=== PATIENT | female | born 1950 | race Caucasian/White ===

== ENCOUNTER 2016-07-08 17:50 | Emergency (ER) | payer MEDICARE, OTHER ==
[~2016-07-08 17:50] MED LIST: Nitroglycerin 0.4 MG TAB 1 EACH ONE; Sodium Chloride 0.9% 1,000 ML BAG ONE
[2016-07-08] MEDS ORDERED: Nitroglycerin 0.4 MG TAB 1 EACH ONE (18:15)
[2016-07-08] MEDS ORDERED: Aspirin 325 MG TAB ONE (18:15)
[2016-07-08 18:33] LABS: #Basophils 0.1 thou/uL (0.0-0.2); #Eosinphils 0.1 thou/uL (0.0-0.7); #Lymphocytes 1.6 thou/uL (1.20-3.40); #Monocytes 0.4 thou/uL (0.11-0.59); #Neutrophils 3.5 thou/uL (1.40-6.50); %Eosinophils 2.6 % (0.0-10.0); %Lymphocytes 27.9 % (21.0-51.0); %Monocytes 7.2 % (0.0-10.0); %Neutrophils 61.3 % (42.0-75.0); Hemoglobin 12.5 g/dL (12.0-16.0); Mean Corpuscular HGB CONC 34.3 g/dL (32.0-36.0); Mean Corpuscular Hemoglobin 28.8 pg (27.0-31.0); Mean Corpuscular Volume 83.9 fl (81.0-99.0); Mean Platelet Volume 8.3 fL (7.4-10.4); Platelet Count 159 thou/uL (130-400); RBC Distribution Width 12.4 % (11.5-14.5); Red Blood Cell (RBC) Count 4.35 mill/uL (4.20-5.40); White Blood Cell (WBC) Count 5.7 thou/uL (4.8-10.8)
[2016-07-08 18:40] LABS: ALT (SGPT) 23 U/L (0-55); AST (SGOT) 24 U/L (5-34); Alkaline Phosphatase 84 U/L (40-150); Anion Gap 14 mmol/L (10-20); BUN (Urea Nitrogen) 11 mg/dL (9.8-20.1); Bilirubin, Total 0.3 mg/dL (0.2-1.2); Calc. Creatinine Clearance 0 mL/min (70-130); Carbon Dioxide 28 mmol/L (23-31); Chloride 104 mmol/L (98-107); Estimated GFR-MDRD 70; Glucose 134 mg/dL (80-115); Potassium 3.2 mmol/L (3.5-5.1); Sodium 143 mmol/L (136-145)
[2016-07-08 18:42] LABS: CKMB 2.1 ng/mL (0-6.6); Troponin I Less than 0.010 ng/mL (< 0.028)
[2016-07-08] MEDS ORDERED: Acetaminophen 325 MG TAB ONE (18:43)
[2016-07-08] MEDS ORDERED: Potassium Chloride 20 MEQ TAB ONE (19:05)
[2016-07-08] MEDS ORDERED: Ondansetron HCl/PF 4 MG/2 ML Vial ONE (19:43)
--- NOTE | 2016-07-08 19:48 | RAD ---
EXAM: ONE VIEW CHEST 07/08/16 COMPARISON: 08/29/15. HISTORY: Chest pain. COMPARISON: None. FINDINGS: Normal cardiac silhouette. The pulmonary vessels and hilum are normal. Costophrenic angles are clear . No mass or consolidation. No pneumothorax or osseous abnormalities. Chronic interstitial prominenc e is noted. IMPRESSION: No acute cardiopulmonary process. POS: [facility]
== END 2016-07-08 23:16 | disposition short-term general hospital (02) ==
LOC: MADERS 17:50
DX: R07.9 Chest pain, unspecified (principal); I25.2 Old myocardial infarction; E78.5 Hyperlipidemia, unspecified; F32.9 Major depressive disorder, single episode, unspecified; Z79.82 Long term (current) use of aspirin; Z79.899 Other long term (current) drug therapy
CPT/HCPCS: 36415; 71010; 80053; 82553; 84484; 85025; 85379; 93005; 96361; 96374; 96375; J2270; J2405; J7050

== ENCOUNTER 2017-10-10 10:03 | Emergency (ER) | payer MEDICARE, OTHER ==
[2017-10-10] MEDS ORDERED: Lidocaine Viscous Sol 2% 15 ml UD Cup ONE (10:43)
== END 2017-10-10 10:55 | disposition home or self-care (01) ==
LOC: MADERS 10:03
DX: K12.1 Other forms of stomatitis (principal); Z85.43 Personal history of malignant neoplasm of ovary; I25.2 Old myocardial infarction; E78.5 Hyperlipidemia, unspecified; J45.909 Unspecified asthma, uncomplicated; F32.9 Major depressive disorder, single episode, unspecified; Z79.82 Long term (current) use of aspirin; Z79.899 Other long term (current) drug therapy
CPT/HCPCS: 99282

== ENCOUNTER 2018-01-24 18:53 | Emergency (ER) | payer MEDICARE, OTHER ==
--- NOTE | 2018-01-24 19:32 | RAD ---
RIGHT WRIST THREE VIEWS: HISTORY: Wrist injury. FINDINGS: There are arthritic changes of the wrist and postoperative changes. There appears to have been resec tion of the trapezium. The bones appear demineralized. There is no evidence of fracture. IMPRESSION: Arthritic changes of the wrist. No acute injury. POS: [facility]
== END 2018-01-24 19:55 | disposition home or self-care (01) ==
LOC: MADERS 18:53
DX: S63.501A Unspecified sprain of right wrist, initial encounter (principal); E11.9 Type 2 diabetes mellitus without complications; I10 Essential (primary) hypertension; E78.5 Hyperlipidemia, unspecified; I25.2 Old myocardial infarction; F32.9 Major depressive disorder, single episode, unspecified; Z86.73 Personal history of transient ischemic attack (TIA), and cerebral infarction without residual deficits; W19.XXXA Unspecified fall, initial encounter

== ENCOUNTER 2018-02-07 14:04 | Emergency (ER) | payer OTHER | END 2018-02-07 14:25 | disposition home or self-care (01) | LOC: MADERS 14:04 | DX: J01.90 Acute sinusitis, unspecified (principal) | CPT/HCPCS: 99283 ==

== ENCOUNTER 2018-06-04 15:49 | Emergency (ER) | payer MEDICARE, OTHER ==
[2018-06-04] MEDS ORDERED: traZODone HCl 50 MG TAB ONE (16:44)
[2018-06-04] MEDS ORDERED: Dexamethasone 4 mg/ml Vial ONE (16:44)
== END 2018-06-04 17:50 | disposition home or self-care (01) ==
LOC: MADERS 15:49
DX: J45.909 Unspecified asthma, uncomplicated (principal)
CPT/HCPCS: 87081; 87430; 96372; J1100; J7620

== ENCOUNTER 2018-09-24 21:56 | Emergency (ER) | payer MEDICARE, OTHER ==
--- NOTE | 2018-09-24 22:57 | RAD ---
3 views right hand. HISTORY: Right hand injury AP, lateral and oblique views right hand obtained. Images demonstrate surgical repair of the base of the first and second metacarpal which is old. No evidence of acute fractures, subluxations or bony lesions seen. 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 The triquetrum is not visualized. IMPRESSION: No evidence of acute right hand abnormality seen.
--- NOTE | 2018-09-24 23:07 | RAD ---
3 views right wrist history: Injury and pain Comparison made to previous exam from 01/24/2018. AP and surgical changes seen in the right wrist. No evidence of acute bony lesions or abnormality see n. IMPRESSION: Chronic degenerative changes and surgical changes. No acute right wrist abnormality seen.
== END 2018-09-24 23:23 | disposition home or self-care (01) ==
LOC: MADERS 21:56
DX: S63.501A Unspecified sprain of right wrist, initial encounter (principal); S60.221A Contusion of right hand, initial encounter; W01.0XXA Fall on same level from slipping, tripping and stumbling without subsequent striking against object, initial encounter

== ENCOUNTER 2022-04-28 10:07 | Emergency (ER) | payer MEDICARE, OTHER ==
[2022-04-28] MEDS ORDERED: Ketorolac Tromethamine 30 MG/ML VIAL ONE (10:30)
== END 2022-04-28 11:46 | disposition home or self-care (01) ==
LOC: MADERS 10:07
DX: M25.511 Pain in right shoulder (principal); M79.641 Pain in right hand; E11.9 Type 2 diabetes mellitus without complications; E78.5 Hyperlipidemia, unspecified; J45.909 Unspecified asthma, uncomplicated; I10 Essential (primary) hypertension; Z86.73 Personal history of transient ischemic attack (TIA), and cerebral infarction without residual deficits; Z79.01 Long term (current) use of anticoagulants; Z79.899 Other long term (current) drug therapy
CPT/HCPCS: 71045; 96372; J1885

== ENCOUNTER 2022-07-22 19:30 | Emergency (ER) | payer MEDICARE, OTHER ==
[2022-07-22 20:06] LABS: Bilirubin Negative (Negative); Blood, Urine Negative (Negative); Clarity Clear (Clear); Glucose, Urine (Dipstick) Negative (Negative); Ketone, Urine Negative (Negative); Leukocyte Negative (Negative); Nitrite Negative (Negative); Protein, Urine (Dipstick) Negative (Neg-Trace); Specific Gravity, Urine 1.025 (1.005-1.030); Urobilinogen 0.2 mg/dL (Less than 2)
[2022-07-22 20:23] LABS: #Eosinphils 0.1 thou/uL (0.0-0.7); #Lymphocytes 1.8 thou/uL (1.20-3.40); #Monocytes 0.4 thou/uL (0.11-0.59); #Neutrophils 3.1 thou/uL (1.40-6.50); %Basophils 0.6 % (0.0-1.0); %Eosinophils 2.6 % (0.0-10.0); %Lymphocytes 33.2 % (21.0-51.0); %Monocytes 6.9 % (0.0-10.0); %Neutrophils 56.6 % (42.0-75.0); Hemoglobin 12.8 g/dL (12.0-16.0); Mean Corpuscular HGB CONC 32.2 g/dL (32.0-36.0); Mean Corpuscular Hemoglobin 27.6 pg (27.0-31.0); Mean Corpuscular Volume 85.6 fl (78.0-98.0); Platelet Count 149 10x3/uL (130-400); RBC Distribution Width 11.5 % (11.5-14.5); Red Blood Cell (RBC) Count 4.65 mill/uL (4.20-5.40); White Blood Cell (WBC) Count 5.5 10x3/uL (4.8-10.8)
[2022-07-22 20:41] LABS: ALT (SGPT) 26 U/L (8-55); AST (SGOT) 27 U/L (5-34); Albumin 4.3 g/dL (3.4-4.8); Alkaline Phosphatase 131 U/L (40-110); Anion Gap 16 mmol/L (10-20); BUN (Urea Nitrogen) 15 mg/dL (9.8-20.1); Bilirubin, Total 0.2 mg/dL (0.2-1.2); Calc. Creatinine Clearance 0 mL/min (70-130); Calcium 9.8 mg/dL (7.8-10.44); Carbon Dioxide 23 mmol/L (23-31); Chloride 106 mmol/L (98-107); Estimated GFR 72; Globulin 2.7 g/dL (2.4-3.5); Glucose 177 mg/dL (83-110); Potassium 3.6 mmol/L (3.5-5.1); Sodium 141 mmol/L (136-145)
[2022-07-22] MEDS ORDERED: Ondansetron PF 4 MG/2 ML Vial ONE (21:17)
[2022-07-22] MEDS ORDERED: Metoclopramide HCl 10 MG/2 ML VIAL ONE (22:18)
== END 2022-07-22 23:01 | disposition home or self-care (01) ==
LOC: MADERS 19:30
DX: R11.2 Nausea with vomiting, unspecified (principal); I25.2 Old myocardial infarction; I48.91 Unspecified atrial fibrillation; E11.9 Type 2 diabetes mellitus without complications; E78.00 Pure hypercholesterolemia, unspecified; I10 Essential (primary) hypertension; Z86.73 Personal history of transient ischemic attack (TIA), and cerebral infarction without residual deficits; Z85.43 Personal history of malignant neoplasm of ovary; Z79.84 Long term (current) use of oral hypoglycemic drugs; Z79.899 Other long term (current) drug therapy
CPT/HCPCS: 80053; 81003; 85025; 87804; 93005; 96374; 96375; J2405; J2765

== ENCOUNTER 2023-04-19 16:27 | Emergency (ER) | payer OTHER | END 2023-04-19 19:25 | disposition left against medical advice (07) | LOC: MADERS 16:27 | DX: Z53.21 Procedure and treatment not carried out due to patient leaving prior to being seen by health care provider (principal) ==

== ENCOUNTER 2023-04-30 02:00 | Emergency (ER) | payer OTHER ==
[2023-04-30] MEDS ORDERED: Ketorolac Tromethamine 30 MG (1 mL) VIAL ONE (02:22)
[2023-04-30] MEDS ORDERED: Ondansetron ODT 4 MG TAB ONE (02:41)
== END 2023-04-30 02:44 | disposition home or self-care (01) ==
LOC: MADERS 02:00
DX: S80.921A Unspecified superficial injury of right lower leg, initial encounter (principal); I48.91 Unspecified atrial fibrillation; E11.9 Type 2 diabetes mellitus without complications; E78.5 Hyperlipidemia, unspecified; I10 Essential (primary) hypertension; Z79.01 Long term (current) use of anticoagulants; W18.30XA Fall on same level, unspecified, initial encounter
CPT/HCPCS: 96372; J1885; Q0162

== ENCOUNTER 2023-07-15 17:00 | Emergency (ER) | payer OTHER, MEDICAID ==
[2023-07-15 18:33] LABS: Influenza A by NAA Not Detected (NotDetected); Influenza B by NAA Not Detected (NotDetected); SARS-CoV-2 NAA Rapid Test Not Detected (NotDetected)
== END 2023-07-15 19:00 | disposition home or self-care (01) ==
LOC: MADERS 17:00
DX: B34.9 Viral infection, unspecified (principal); E11.9 Type 2 diabetes mellitus without complications; E78.5 Hyperlipidemia, unspecified; I10 Essential (primary) hypertension
CPT/HCPCS: 0240U; 87081; 87430; 99283

== ENCOUNTER 2023-10-25 17:11 | Emergency (ER) | payer OTHER ==
[2023-10-25] MEDS ORDERED: Aspirin Chewable 81 MG TAB ONE (17:36)
[2023-10-25] MEDS ORDERED: Nitroglycerin 0.4 MG TAB 1 EACH ONE (17:36)
[2023-10-25 17:41] LABS: #Eosinphils 0.2 thou/uL (0.0-0.7); #Monocytes 0.5 thou/uL (0.11-0.59); #Neutrophils 2.7 thou/uL (1.40-6.50); %Basophils 0.8 % (0.0-1.0); %Eosinophils 3.6 % (0.0-10.0); %Lymphocytes 23.9 % (21.0-51.0); %Monocytes 10.5 % (0.0-10.0); %Neutrophils 61.4 % (42.0-75.0); Hematocrit 35.2 % (36.0-47.0); Hemoglobin 10.8 g/dL (12.0-16.0); Mean Corpuscular HGB CONC 30.8 g/dL (32.0-36.0); Mean Corpuscular Hemoglobin 26.8 pg (27.0-31.0); Mean Platelet Volume 6.6 fL (7.4-10.4); Platelet Count 126 10x3/uL (130-400); RBC Distribution Width 13.8 % (11.5-14.5); Red Blood Cell (RBC) Count 4.05 mill/uL (4.20-5.40); White Blood Cell (WBC) Count 4.3 10x3/uL (4.8-10.8)
[2023-10-25 17:56] LABS: ALT (SGPT) 23 U/L (8-55); AST (SGOT) 27 U/L (5-34); Albumin 3.8 g/dL (3.4-4.8); Alkaline Phosphatase 98 U/L (40-110); Anion Gap 17 mmol/L (10-20); BUN (Urea Nitrogen) 17 mg/dL (9.8-20.1); Bilirubin, Total 0.3 mg/dL (0.2-1.2); Calc. Creatinine Clearance 0 mL/min (70-130); Calcium 9.1 mg/dL (7.8-10.44); Carbon Dioxide 22 mmol/L (23-31); Chloride 108 mmol/L (98-107); Estimated GFR 76; Globulin 2.6 g/dL (2.4-3.5); Glucose 72 mg/dL (83-110); Magnesium 1.9 mg/dL (1.6-2.6); Potassium 3.7 mmol/L (3.5-5.1); Protein, Total 6.4 g/dL (5.8-8.1); Sodium 143 mmol/L (136-145); Troponin I Less than 0.010 ng/mL (< 0.028)
[2023-10-25] MEDS ORDERED: Ipratropium/Albuterol 3 ML NEB ONE (17:58)
[2023-10-25] MEDS ORDERED: Enoxaparin 100 MG (1 mL) SYRINGE ONE (20:06)
[2023-10-25 21:11] LABS: Troponin I Less than 0.010 ng/mL (< 0.028)
== END 2023-10-25 21:25 | disposition short-term general hospital (02) ==
LOC: MADERS 17:11
DX: R07.9 Chest pain, unspecified (principal); I20.0 Unstable angina; I48.91 Unspecified atrial fibrillation; E11.9 Type 2 diabetes mellitus without complications; E78.5 Hyperlipidemia, unspecified; I10 Essential (primary) hypertension; J45.909 Unspecified asthma, uncomplicated; Z86.73 Personal history of transient ischemic attack (TIA), and cerebral infarction without residual deficits; Z95.1 Presence of aortocoronary bypass graft; Z79.899 Other long term (current) drug therapy; Z79.01 Long term (current) use of anticoagulants
CPT/HCPCS: 71045; 80053; 82962; 83690; 83735; 83880; 84484 ×2; 85025; 93005; J1650; 36416; J7620

== ENCOUNTER 2024-04-21 18:24 | Emergency (ER) | payer OTHER, MEDICAID ==
[2024-04-21] MEDS ORDERED: Amoxicillin/Potassium Clav 875 MG TAB ONE (20:28)
[2024-04-21] MEDS ORDERED: predniSONE 20 MG TAB ONE (20:28)
[2024-04-21] MEDS ORDERED: Azithromycin 250 MG TAB ONE (20:28)
== END 2024-04-21 20:46 | disposition home or self-care (01) ==
LOC: MADERS 18:24
DX: J44.1 Chronic obstructive pulmonary disease with (acute) exacerbation (principal); I10 Essential (primary) hypertension; E11.9 Type 2 diabetes mellitus without complications; E78.5 Hyperlipidemia, unspecified; I48.91 Unspecified atrial fibrillation; I25.2 Old myocardial infarction; Z79.01 Long term (current) use of anticoagulants; Z79.84 Long term (current) use of oral hypoglycemic drugs; Z86.73 Personal history of transient ischemic attack (TIA), and cerebral infarction without residual deficits; Z79.899 Other long term (current) drug therapy
CPT/HCPCS: 87081; 87400; 87430; 99283; J7512

== ENCOUNTER 2024-05-24 16:22 | Emergency (ER) | payer OTHER | END 2024-05-24 18:20 | disposition home or self-care (01) | LOC: MADERS 16:22 | DX: S93.502A Unspecified sprain of left great toe, initial encounter (principal); I10 Essential (primary) hypertension; E11.9 Type 2 diabetes mellitus without complications; X58.XXXA Exposure to other specified factors, initial encounter | CPT/HCPCS: 99283 ==

== ENCOUNTER 2024-06-14 17:59 | Emergency (ER) | payer OTHER ==
[~2024-06-14 17:59] MED LIST changes: +Iopamidol 370 76% 100 ML VIAL ONE; -Nitroglycerin 0.4 MG TAB 1 EACH ONE; -Sodium Chloride 0.9% 1,000 ML BAG ONE
[2024-06-14 18:23] LABS: Bilirubin Small (Negative); Blood, Urine Negative (Negative); Clarity Clear (Clear); Glucose, Urine (Dipstick) Negative (Negative); Ketone, Urine Trace mg/dL (Negative); Leukocyte Negative (Negative); Nitrite Negative (Negative); Protein, Urine (Dipstick) Trace mg/dL (Neg-Trace); Specific Gravity, Urine 1.025 (1.005-1.030); pH, Urine 5.5 (5.0-9.0)
[2024-06-14 18:30] LABS: Bacteria/HPF Rare-Few HPF (None Seen); CAUTI Indications for Culture Pelvic or flank pain; Mucous/LPF 2+ LPF (<2+); RBC/HPF None Seen HPF (0-3); WBC/HPF 0-3 HPF (0-3)
[2024-06-14 18:31] LABS: Urine Culture Reflex No No
[2024-06-14] MEDS ORDERED: Lactated Ringer's 1,000 ML ONE (18:41)
[2024-06-14] MEDS ORDERED: Prochlorperazine 10 MG/2 ML VIAL ONE (18:41)
[2024-06-14] MEDS ORDERED: Morphine 4 MG/ML VIAL ONE (18:41)
[2024-06-14 18:54] LABS: #Eosinophils 0.1 thou/uL (0.0-0.7); #Lymphocytes 0.7 thou/uL (1.20-3.40); #Monocytes 0.5 thou/uL (0.11-0.59); #Neutrophils 3.1 thou/uL (1.40-6.50); %Basophils 0.5 % (0.0-1.0); %Eosinophils 1.3 % (0.0-10.0); %Lymphocytes 15.5 % (21.0-51.0); %Monocytes 10.4 % (0.0-10.0); %Neutrophils 72.3 % (42.0-75.0); Hematocrit 27.9 % (36.0-47.0); Hemoglobin 8.9 g/dL (12.0-16.0); Mean Corpuscular HGB CONC 31.9 g/dL (32.0-36.0); Mean Corpuscular Volume 75.1 fl (78.0-98.0); Mean Platelet Volume 7.1 fL (7.4-10.4); Platelet Count 170 10x3/uL (130-400); RBC Distribution Width 15.2 % (11.5-14.5); Red Blood Cell (RBC) Count 3.71 mill/uL (4.20-5.40); White Blood Cell (WBC) Count 4.3 10x3/uL (4.8-10.8)
[2024-06-14 19:06] LABS: Anisocytosis SLIGHT = 6-15 cells (100X) (0-5/hpf); Hypochromia SLIGHT = 6-15 cells (100X) (0-5/hpf); Microcytosis SLIGHT = 6-15 cells (100X) (0-5/hpf)
[2024-06-14 19:07] LABS: ALT (SGPT) 23 U/L (Less than 34); AST (SGOT) 51 U/L (11-34); Albumin 3.4 g/dL (3.1-4.5); Alkaline Phosphatase 163 U/L (40-110); Anion Gap 17 mmol/L (10-20); BUN (Urea Nitrogen) 10 mg/dL (9.8-20.1); Bilirubin, Total 0.5 mg/dL (0.3-1.2); Calc. Creatinine Clearance 0 mL/min (70-130); Calcium 9.2 mg/dL (7.8-10.44); Carbon Dioxide 23 mmol/L (23-31); Chloride 103 mmol/L (98-107); Estimated GFR 86; Globulin 3.4 g/dL (2.4-3.5); Glucose 142 mg/dL (83-110); Lipase 26 U/L (8-78); Magnesium 1.7 mg/dL (1.6-2.6); Potassium 3.5 mmol/L (3.5-5.1); Protein, Total 6.8 g/dL (5.8-8.1); Sodium 139 mmol/L (136-145)
== END 2024-06-14 20:19 | disposition home or self-care (01) ==
LOC: MADERS 17:59
DX: D64.9 Anemia, unspecified (principal); I10 Essential (primary) hypertension; R11.2 Nausea with vomiting, unspecified; R19.7 Diarrhea, unspecified; I48.91 Unspecified atrial fibrillation; E11.9 Type 2 diabetes mellitus without complications; E78.5 Hyperlipidemia, unspecified; G45.9 Transient cerebral ischemic attack, unspecified; I63.9 Cerebral infarction, unspecified; J45.909 Unspecified asthma, uncomplicated; I25.2 Old myocardial infarction; Z79.01 Long term (current) use of anticoagulants; Z79.899 Other long term (current) drug therapy
CPT/HCPCS: 71045; 74177; 80053; 81001; 83605; 83690; 83735; 85025; 94760; 96361; 96374; 96375; J0780; J2270; J7120; Q9967

== ENCOUNTER 2024-09-22 15:37 | Emergency (ER) | payer OTHER ==
[2024-09-22 16:45] LABS: ALT (SGPT) 24 U/L (Less than 34); AST (SGOT) 53 U/L (11-34); Albumin 3.3 g/dL (3.1-4.5); Alkaline Phosphatase 164 U/L (40-110); Anion Gap 18 mmol/L (10-20); BUN (Urea Nitrogen) 11 mg/dL (9.8-20.1); Bilirubin, Total 0.6 mg/dL (0.3-1.2); Calc. Creatinine Clearance 0 mL/min (70-130); Calcium 8.7 mg/dL (7.8-10.44); Carbon Dioxide 25 mmol/L (23-31); Chloride 103 mmol/L (98-107); Estimated GFR 80; Globulin 3.3 g/dL (2.4-3.5); Glucose 173 mg/dL (83-110); Magnesium 1.4 mg/dL (1.6-2.6); Potassium 3.1 mmol/L (3.5-5.1); Protein, Total 6.6 g/dL (5.8-8.1); Sodium 143 mmol/L (136-145)
[2024-09-22 16:49] LABS: Anisocytosis SLIGHT = 6-15 cells (100X) (0-5/hpf); Band 2 % (5-11); Eosinophils 1 % (0-10); Hemoglobin 7.8 g/dL (12.0-16.0); Hypochromia SLIGHT = 6-15 cells (100X) (0-5/hpf); Lymphocytes 21 % (21-51); MDiff Complete? YES; Mean Corpuscular Hemoglobin 20.8 pg (27.0-31.0); Mean Corpuscular Volume 74.4 fl (78.0-98.0); Microcytosis SLIGHT = 6-15 cells (100X) (0-5/hpf); Monocytes 9 % (0-10); Neutrophil 66 % (42-75); Platelet Adequacy Comment Appears Adequate; Platelet Count 144 10x3/uL (130-400); RBC Distribution Width 18.1 % (11.5-14.5); Red Blood Cell (RBC) Count 3.76 mill/uL (4.20-5.40); White Blood Cell (WBC) Count 3.7 10x3/uL (4.8-10.8)
== END 2024-09-22 17:20 | disposition home or self-care (01) ==
LOC: MADERS 15:37
DX: I95.9 Hypotension, unspecified (principal); E87.6 Hypokalemia; E83.42 Hypomagnesemia; D64.9 Anemia, unspecified; I25.2 Old myocardial infarction; E11.9 Type 2 diabetes mellitus without complications; I10 Essential (primary) hypertension; I48.91 Unspecified atrial fibrillation; E78.5 Hyperlipidemia, unspecified; E66.9 Obesity, unspecified; Z86.73 Personal history of transient ischemic attack (TIA), and cerebral infarction without residual deficits; Z95.5 Presence of coronary angioplasty implant and graft; J45.909 Unspecified asthma, uncomplicated; Z79.51 Long term (current) use of inhaled steroids; Z79.899 Other long term (current) drug therapy; Z79.01 Long term (current) use of anticoagulants; Z79.84 Long term (current) use of oral hypoglycemic drugs
CPT/HCPCS: 36415; 80053; 83735; 83880; 85025; 99284

== ENCOUNTER 2025-03-25 01:25 | Emergency (ER) | payer OTHER ==
[2025-03-25] MEDS ORDERED: Ondansetron PF 4 MG/2 ML Vial ONE (01:53)
[2025-03-25 02:16] LABS: #Basophils 0.1 thou/uL (0.0-0.2); #Eosinophils 0.1 thou/uL (0.0-0.7); #Lymphocytes 0.8 thou/uL (1.20-3.40); #Monocytes 0.6 thou/uL (0.11-0.59); #Neutrophils 6.0 thou/uL (1.40-6.50); %Basophils 1.1 % (0.0-1.0); %Eosinophils 1.4 % (0.0-10.0); %Lymphocytes 11.1 % (21.0-51.0); %Monocytes 7.4 % (0.0-10.0); %Neutrophils 79.0 % (42.0-75.0); Hematocrit 45.1 % (36.0-47.0); Hemoglobin 14.1 g/dL (12.0-16.0); Mean Corpuscular Hemoglobin 28.8 pg (27.0-31.0); Mean Corpuscular Volume 92.3 fl (78.0-98.0); Platelet Count 158 10x3/uL (130-400); Red Blood Cell (RBC) Count 4.89 mill/uL (4.20-5.40); White Blood Cell (WBC) Count 7.6 10x3/uL (4.8-10.8)
[2025-03-25 02:33] LABS: ALT (SGPT) 15 U/L (Less than 34); AST (SGOT) 34 U/L (11-34); Albumin 3.6 g/dL (3.1-4.5); Alkaline Phosphatase 195 U/L (40-110); Anion Gap 18 mmol/L (10-20); BUN (Urea Nitrogen) 14 mg/dL (9.8-20.1); Bilirubin, Total 0.8 mg/dL (0.3-1.2); Calc. Creatinine Clearance 0 mL/min (70-130); Calcium 9.5 mg/dL (7.8-10.44); Carbon Dioxide 23 mmol/L (23-31); Chloride 104 mmol/L (98-107); Globulin 3.4 g/dL (2.4-3.5); Glucose 224 mg/dL (83-110); Lipase 26 U/L (8-78); Potassium 3.2 mmol/L (3.5-5.1); Sodium 142 mmol/L (136-145)
[2025-03-25 03:02] LABS: Glucose, Urine (Dipstick) Negative (Negative); Leukocyte Small (Negative); Protein, Urine (Dipstick) 30 mg/dL (Neg-Trace); Specific Gravity, Urine 1.025 (1.005-1.030)
[2025-03-25 03:05] LABS: Bacteria/HPF Rare-Few HPF (None Seen); CAUTI Indications for Culture Pelvic or flank pain; RBC/HPF 0-3 HPF (0-3); Urine Culture Reflex No No
[2025-03-25] MEDS ORDERED: Guaifenesin DM 100-10/5 ML UDCUP ONE (03:17)
== END 2025-03-25 04:52 | disposition home or self-care (01) ==
LOC: MADERS 01:25
DX: R11.2 Nausea with vomiting, unspecified (principal); R05.9 Cough, unspecified; E11.9 Type 2 diabetes mellitus without complications; I10 Essential (primary) hypertension; I25.2 Old myocardial infarction; I48.91 Unspecified atrial fibrillation; E66.9 Obesity, unspecified; Z86.73 Personal history of transient ischemic attack (TIA), and cerebral infarction without residual deficits
CPT/HCPCS: 71045; 80053; 81001; 83605; 83690; 85025; 87428; J2405; J7030; 96361; 96374

== ENCOUNTER 2025-04-28 12:13 | Emergency (ER) | payer OTHER ==
[2025-04-28] MEDS ORDERED: cefTRIAXone (ROCEPHIN) 1 GM VIAL ONE (16:39)
[2025-04-28] MEDS ORDERED: Azithromycin 250 MG TAB ONE (16:39)
== END 2025-04-28 17:15 | disposition home or self-care (01) ==
LOC: MADERS 12:13
DX: J45.901 Unspecified asthma with (acute) exacerbation (principal); J18.9 Pneumonia, unspecified organism; E11.9 Type 2 diabetes mellitus without complications; I10 Essential (primary) hypertension; Z86.73 Personal history of transient ischemic attack (TIA), and cerebral infarction without residual deficits
CPT/HCPCS: 71046; 87428; 96372; J0696; J2919; Q0162